=== PATIENT | female | born 1995 | race Caucasian/White ===

== ENCOUNTER 2025-02-10 22:24 | Emergency (ER) | payer MEDICAID ==
[~2025-02-10] VITALS: Ht 160 cm; Wt 73.0 kg
[2025-02-10 22:36] VITALS: O2SAT 98
[2025-02-10 23:25] LABS: BASOPHILS % 0.6 % (0.0-2.0); EOSINOPHILS % 0.9 % (0.0-5.0); HEMATOCRIT. 41.5 % (36.0-48.0); HEMOGLOBIN. 13.5 g/dL (12.0-16.0); LYMPHOCYTES % 18.1 % (20.0-50.0); MEAN PLATELET VOLUME 9.3 fl (7.4-10.4); MONOCYTES % 6.6 % (2.0-8.0); NEUTROPHILS % 73.8 % (40.0-76.0); PLATELET 244 x1000/uL (130-400); RED BLOOD CELL COUNT 5.26 mill/uL (4.2-5.4); RED CELL DISTRIBUTION WIDTH 14.8 % (11.6-14.6)
[2025-02-10 23:30] LABS: CREATININE 0.8 mg/dL (0.6-1.0); PROTEIN TOTAL 7.1 g/dL (6.0-8.3); UREA NITROGEN BLOOD 7 mg/dL (9-23)
[2025-02-10 23:32] LABS: ASPARTATE AMINOTRANSFERASE 12 IU/L (<34); BILIRUBIN DIRECT 0.3 mg/dL (<=3.0); BILIRUBIN TOTAL 1.0 mg/dL (0.1-1.0)
[2025-02-11 00:38] LABS: TROPONIN I HIGH SENSITIVITY < 4 ng/L (3.0-34)
[2025-02-11] MEDS ORDERED: NAPR-1176 MT (01:05)
[2025-02-11 01:41] LABS: CLARITY URINE CLOUDY (CLEAR); COLOR URINE RED (YELLOW); GLUCOSE URINE NEGATIVE (NEGATIVE); KETONES URINE 2+ (NEGATIVE); LEUKOCYTE ESTERASE URINE 2+ (NEGATIVE); NITRITE URINE NEGATIVE (NEGATIVE); OCCULT BLOOD URINE 3+ (NEGATIVE); PH URINE 6.0 (4.5-8.0); PROTEIN URINE 2+ (NEGATIVE); SPECIFIC GRAVITY URINE 1.029 (1.005-1.030); UROBILINOGEN URINE 1.0 E.U./dL (0.2-1.0)
[2025-02-11] MEDS: KETOROLAC 15MG/ML VIAL IM ONE (01:42)
[2025-02-11 02:08] LABS: RBC URINE TNTC /hpf (0-2); SQUAMOUS EPITHELIAL CELL URINE 1+ /lpf (RARE/1+)
[2025-02-11 02:12] LABS: BACTERIA URINE 1+; WBC URINE 0-2 /hpf (0-2)
[2025-02-11] MEDS ORDERED: CEPH500C2 MT (02:21)
[2025-02-11 02:29] VITALS: BP 146/92; PULSE 94; RESP 14; TEMP 36.7; O2SAT 100
== END 2025-02-11 02:30 | disposition home or self-care (01) ==
LOC: ER 22:24
DX: N39.0 Urinary tract infection, site not specified (principal); R00.2 Palpitations; E87.6 Hypokalemia; Z79.1 Long term (current) use of non-steroidal anti-inflammatories (NSAID)
CPT/HCPCS: 36415; 71045; 80048; 80076; 81003; 81025; 84484; 85025; 93005; 99285